=== PATIENT | male | born 1935 | race Caucasian/White ===

== ENCOUNTER 2017-05-17 22:54 | Emergency (ER) | payer OTHER ==
[2017-05-17 23:06] VITALS: BP 125/91; PULSE 89; TEMP 97.5; BMI 23.8
[2017-05-17] MEDS ORDERED: TETANUS AND DIPHTHERIA TOXOID 0.5 ML DISP.SYRIN IM ONE (23:16)
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
== END 2017-05-18 01:06 | disposition home or self-care (01) ==
LOC: JER 22:54
PROC: 0HQEXZZ Repair Left Lower Arm Skin, External Approach (ICD-10-PCS; principal; 2017-05-17)
PROC: 0HQFXZZ Repair Right Hand Skin, External Approach (ICD-10-PCS; 2017-05-17)
PROC: 3E0234Z Introduction of Serum, Toxoid and Vaccine into Muscle, Percutaneous Approach (ICD-10-PCS; 2017-05-17)
DX: S51.812A Laceration without foreign body of left forearm, initial encounter (principal); S41.112A Laceration without foreign body of left upper arm, initial encounter; S61.411A Laceration without foreign body of right hand, initial encounter; R05 Cough; X99.1XXA Assault by knife, initial encounter; Y93.89 Activity, other specified; Y92.008 Other place in unspecified non-institutional (private) residence as the place of occurrence of the external cause
CPT/HCPCS: 73130-TC-RT-FY; 73140-TC-RT-FY; 99282-25